=== PATIENT | male | born 1980 | race Caucasian/White ===

== ENCOUNTER 2018-12-07 14:35 | Emergency (ER) | payer MEDICAID, SELFPAY ==
--- NOTE | 2018-12-07 14:44 | NUR.NOTE ---
Nursing Note: pt states that on Wednesday morning he awoke with 4/10 pain in left tactical pt states that when standing or walking it radiates LLQ abdomen. pt does have history of vasectomy and is concerned that it may have something to do with that
[2018-12-07 14:47] VITALS: BP 128/72; PULSE 56; RESP 15; TEMP 37.2; O2SAT 96
--- NOTE | 2018-12-07 15:11 | DI.US_ITS ---
SYMPTOM/DIAGNOSIS: LT TESTICULAR PAIN TESTICULAR ULTRASOUND: Routine examination was performed. The right testicle measures 5.2 by 3.6 by 3.6 cm. There is normal blood flow to the right testicle. No intratesticular mass is seen. No evidence of torsion. The right epididymis is grossly unremarkable except for a 3 mm. cyst in the epididymal head. The left testicle measures 4.2 by 3.2 by 3.6 cm. It is homogeneous in echogenicity with normal blood flow. No evidence of an intratesticular mass or torsion is present. The left epididymis is unremarkable. Note is made of moderate bilateral hydroceles. Note is made of a small left varicocele. IMPRESSION: 1. No evidence of an intratesticular mass or torsion. 2. Moderate bilateral hydroceles.
--- NOTE | 2018-12-07 16:10 | DI.VRAD_ITS ---
EXAM: US Scrotum EXAM DATE/TIME: 12/07/2018 3:43 PM CLINICAL HISTORY: 38 years old, male; Patient HX: Lt testicular pain since Tuesday 12/05 TECHNIQUE: Imaging protocol: Real-time ultrasound of the scrotum and contents with color Doppler and image documentation. COMPARISON: No relevant prior studies available. FINDINGS: Right Testicle: . No mass. No torsion. Normal vascular flow. There is a moderate size right hydrocele Left Testicle: . No mass. No torsion. Normal vascular flow. There is a moderate-sized left hydrocele slightly larger than the right. Epididymides: The left epididymis shows no abnormality.. There is a 3 mm cyst in the head of the right epididymis. There is normal blood flow to the right epididymis. Scrotum: There is a small dilated vein in the left measuring up to 5 mm in diameter.. IMPRESSION: 1. Moderate size bilateral hydroceles 2. Small left varicocele 3. Tiny cyst in the head of the right epididymis. Dictated and Authenticated by: Juan Delgadillo MD. Ordering:GRETCHEN Hagen MD
--- NOTE | 2018-12-07 16:11 | ED.GENADUL_ITS ---
Discharge Plan Disposition Patient Disposition: HOME Condition: Stable Discharge Details Chief Complaint: GenMedical Clinical Impression: Left varicocele Primary Care Provider: Breana,Local ED Provider: Hieu Saucedo Home Meds and New Rx's Prescriptions: Continued Cholestyramine Light 4 gram Powder 4 g PO BID RF: 0 Discharge Instructions Instructions: Varicocele (ED), Testicle Pain (ED) Additional Instructions: You should wear tight fitting underwear or briefs to provide additional support and use [id number] acetaminophen or Motrin for pain. Return to the emerge ncy department for any new or significant worsening of symptoms, swelling to your testicle, any urinary symptoms that you begin having. Otherwise follow-up with primary care provider for reassessment as needed Referrals: Primary Care Provider [Outside] (As needed for reassessment) Discharge Data Discharge Date/Time-TO BE ENTERED AT DEPARTURE: 12/07/18 16:32 Medical Decision Making Left testicle pain x3 days, patient woke up on Wednesday morning with continued pain. Patient does state history of left inguinal hernia and vasectomy. Patient denies any urinary symptoms, discharge, rash or lesions. Physical exam shows a slightly higher left testicle than right, inability to produce cremaster reflex bilateral, no tenderness of right testicle but diffuse tenderness of left testicle without any specific findings. No inguinal canal tenderness mass or swelling. Plan to do ultrasound imaging for exclusion of torsion. Preliminary report from operations and maintenance technician shows no evidence of torsion but left varicocele that may be causing symptoms. Patient is otherwise stable and denies any need for pain medications I feel that he is able to safely follow-up with urology if symptoms do not improve with tight fitting underwear. Return precautions were discussed HPI General Mode of arrival: ambulatory . Date/Time Provider Initiated Documentation: 12/07/18 14:59 . Limitations to Documentation: no limitations . Information obtained by: patient and RN notes reviewed . History of Present Illness 38 year old M presents to the emergency department with the chief complaint of Left testicle pain, described as moderate, with intensity rated at 4. Quality is described as aching, and is localized to the genitals. Patient started experiencing this day(s) (3) and it has been constant. No relieving factors improve symptom(s), No exacerbating factors reported . Patient notes no other symptoms.. Patient did receive the following treatments prior to arrival, none Related Data Home Medications Medication Instructions Recorded Confirmed Cholestyramine Light 4 g PO BID 12/07/18 12/07/18 Allergies Allergy/AdvReac Type Severity Reaction Status Date / Time No Known Allergies Allergy Unverified 12/07/18 14:48 General Stated Complaint: GenMedical JOSE ENRIQUE: 2 Review of Systems Constitutional Denies chills and Denies fever(s) Gastrointestinal Denies abdominal pain, Denies nausea and Denies vomiting Genitourinary Reports as per HPI, Denies hematuria, Denies difficulty urinating, Denies dysuria, Denies penile discharge, Denies scrotal swelling, Denies testicular mass and Reports testicular pain Integumentary/Breasts Denies erythema and Denies rash REPLACED BY [facility] Social History Smoking/Tobacco Use Status: Never Alcohol Intake: current Alcohol Intake frequency: a few times a week Drug use: Never Substance use type: does not use Do you feel safe at home: Yes Do you feel safe in your relationship?: Yes Exam Const General: cooperative, no acute distress and not ill appearing Orientation: alert, awake and oriented x3 Resp Effort & Inspection: normal respiratory effort, able to speak in complete sentences and no respiratory distress GI Inspection: no visible herniation Palpation: no hernias Penis: normal penis Meatus: meatus normal Scrotum: cremasteric reflex absent bilaterally, not edematous, not erythematous, no masses and no scrotal swelling Testes: not enlarged, no epididymal induration, no epidiymal masses, no testicular mass, no testicular swelling, testicular tenderness on the left and high-riding testicle on the left Skin General skin exam: no rashes or lesions noted Course Vital Signs Temperature 37.2 C 12/07/18 14:47 Pulse 56 L 12/07/18 14:47 Respiratory Rate 15 12/07/18 14:47 Blood Pressure 128/72 12/07/18 14:47 Pulse Oximetry 96 12/07/18 14:47 Temperature 37.2 C 12/07/18 14:47 Temperature Source Skin 12/07/18 14:47 Pulse 56 L 12/07/18 14:47 Respiratory Rate 15 12/07/18 14:47 Respiratory Effort 12/07/18 14:49 Blood Pressure 128/72 12/07/18 14:47 Blood Pressure Position Sitting 12/07/18 14:47 Pulse Oximetry 96 12/07/18 14:47 Oxygen Delivery Method Room Air 12/07/18 14:47 Oxygen Flow Rate 0 12/07/18 14:47 Pain Level 3 12/07/18 14:47
== END 2018-12-07 16:32 | disposition home or self-care (01) ==
LOC: ER 16:13
PROVIDERS: Emergency Provider Nurse Practitioner Family
DX: I86.1 Scrotal varices (principal)
CPT/HCPCS: 99285; 76870; 99284

== ENCOUNTER 2023-04-02 19:08 | Observation (INO) | payer OTHER, SELFPAY ==
[2023-04-02 19:18] VITALS: BP 148/103; PULSE 93; RESP 18; TEMP 37.1; O2SAT 98
--- NOTE | 2023-04-02 20:12 | W.ED.GENAD ---
Discharge Plan Disposition Patient Disposition: Admit to [facility] Condition: Fair Discharge Details Clinical Impression: Sigmoid diverticulitis Primary Care Provider: Breana,Local ED Provider: Eduardo Villagomez Meds and New Rx's Prescriptions: No Action Cholestyramine Light 4 gram Powder 4 g PO BID Medical Decision Making Patient presenting to ED with right lower quadrant abdominal pain worsening over the course of today. He has difficulty ambulating and is hunched over walking to the room. He is exquisitely tender in the right lower quadrant with guarding and rebound. Likely appendicitis. IV established and fluids started. Patient made NPO. Morphine and ondansetron given. Laboratory studies and CT scan ordered. Patient's laboratory studies with a white count of 11.5. Hemoglobin, platelets, chemistries, lipase, liver function all normal. Urine still pending at this point. CT scan does not show appendicitis. He does have sigmoid colitis with no evidence of perforation or abscess. He has required multiple doses of morphine. He still has significant pain and tenderness. We will plan admission for pain control, hydration, antibiotics. Discussed with patient. Discussed with hospitalist. First dose antibiotics given here in the ED. Lab Data Lab results reviewed: Yes I reviewed the patient's lab results. HPI General Mode of arrival: ambulatory. Date/Time Provider Initiated Documentation: 04/02/23 20:12. Limitations to Documentation: no limitations. Information obtained by: patient. HPI Narrative: Patient presents to the ED with worsening abdominal pain that initially started yesterday. He was able to get up and go to work this morning but his pain continued to get worse such that he left shortly after lunchtime. He is having difficulty ambulating because of pain. Pain is worse with movement. It is right lower quadrant in nature. He has associated nausea and chills but has not had fever, vomiting. He has had soft stool but not diarrhea. He denies urinary symptoms. He has no appetite at this point. Related Data Home Medications Medication Instructions Recorded Confirmed cholestyramine-aspartame 4 gram 4 g PO BID 12/07/18 12/07/18 oral powder (Cholestyramine Light) Allergies Allergy/AdvReac Type Severity Reaction Status Date / Time No Known Allergies Allergy Unverified 12/07/18 14:48 General Stated Complaint: Abd Prob JOSE ENRIQUE: 3 Review of Systems Narrative: Per HPI PFSH All Active Problems (Updated 09/29/23 @ 22:11 by Eduardo Villagomez MD) Sigmoid diverticulitis (Acute) Medical History GERD (gastroesophageal reflux disease) Hypercholesterolemia Social History Smoking/Tobacco Use Status: Current every day Smoking risk assessment performed?: Yes Alcohol Intake: current Alcohol Intake frequency: a few times a week Drug use: Never Substance use type: does not use Do you feel safe at home: Yes Do you feel safe in your relationship?: Yes Exam Narrative Exam Narrative: Const: WDWN male in NAD. HEENT: NC/AT. Normal facial exam. Eyes: Normal conjunctiva and sclera. Neck: Supple. Trachea midline. Lungs: Normal respiratory effort. GI: Soft and ND. Tender in the RLQ with guarding, rebound. Equivocal [place]. Neuro: A+O x 3. Normal speech, mentation, gait. Cranial nerves II - XII grossly intact. No gross motor or sensory deficit. Ext: No C/C/E. Skin: Warm and dry without rash. Course Vital Signs Vital signs: Vital Signs Temperature 98.8 F 04/02/23 19:18 Pulse 93 H 04/02/23 19:18 Respiratory Rate 18 04/02/23 19:18 Blood Pressure 148/103 H 04/02/23 19:18 Pulse Oximetry 98 04/02/23 19:18 Temperature 98.8 F 04/02/23 19:18 Temperature Source Skin 04/02/23 19:18 Pulse 93 H 04/02/23 19:18 Respiratory Rate 18 04/02/23 19:18 Respiratory Effort Normal 04/02/23 19:20 Blood Pressure 148/103 H 04/02/23 19:18 Blood Pressure Position Sitting 04/02/23 19:18 Pulse Oximetry 98 04/02/23 19:18 Oxygen Delivery Method Room Air 04/02/23 19:18 Oxygen Flow Rate 0 04/02/23 19:18 Pain Level 10 04/02/23 19:18
--- NOTE | 2023-04-02 20:15 | DI.CT_ITS ---
Exam(s) CT ABDOMEN PELVIS W EXAM: CT ABDOMEN PELVIS W CLINICAL HISTORY: RLQ pain/tenderness. TECHNIQUE: Imaging Protocol: Axial computed tomography images with coronal and sagittal reformatted images were created and reviewed CONTRAST MATERIAL: Intravenous: Omnipaque-350 100cc Oral: None COMPARISON: No exams were available for comparison FINDINGS: VISUALIZED LUNG BASES: No nodules nor pleural effusions evident. ABDOMEN: There is no ascites. LIVER: Liver is hypodense implying steatosis. No discrete focal hepatic lesions. No dilated intrahe patic ducts. GALLBLADDER/BILIARY: No obvious gallbladder pathology. CBD is not dilated. PANCREAS: No evidence of pancreatic mass nor dilatation of the pancreatic duct. SPLEEN: Spleen is not enlarged. No obvious intrasplenic lesions. Splenic and portal veins are paten t. ADRENALS: There are no significant adrenal masses. KIDNEYS:No cysts evident. No solid renal masses. No calculi nor hydronephrosis.. ABDOMINAL AORTA: Abdominal aorta is not enlarged. LYMPH NODES:There is no retroperitoneal nor paraaortic adenopathy. ABDOMINAL WALL: No evidence of significant anterior abdominal wall nor inguinal hernia. GI: There is no evidence of bowel obstruction.. PELVIS: GI: Appendix diameter is upper normal.Main findings are in the sigmoid where there is evidence of acu te diverticulitis. The culprit diverticulum is on the right side of the sigmoid wall in the mid pelv is. There is abundant streaking but no abscess at this time. LYMPH NODES: There is no intrapelvic nor inguinal adenopathy. REPRODUCTIVE: Prostate size normal. Seminal vesicles unremarkable. URINARY BLADDER: No calculi nor obvious masses evident. No intraluminal gas to suggest fistulous com munication from the adjacent diverticulitis of the sigmoid. OSSEOUS: No fractures and no significant osseous lesions. IMPRESSION: 1. Findings are consistent with acute sigmoid diverticulitis. There is significant surrounding fat s tranding but no formed abscess at this time. No fluid in the dependent aspect of the pelvis. 2. There is no gas in the lumen of the adjacent urinary bladder to suggest fistulous communication. 3. There is no gas in the portal venous system and there is no abscess in the liver. RADIATION DOSE DELIVERED: 1,345.85mGy.cm Total DLP DATA REPOSITORY: All CT scans at this facility are submitted to the National Radiology Data Registry (NRDR) Dose Index Registry (DIR) with the [employer] (ACR). RADIATION OPTIMIZATION: All CT scans at this facility use at least one of these dose optimization te chniques: automated exposure control; mA and/or kV adjustment per patient size (includes targeted exa ms where dose is matched to clinical indication); or iterative reconstruction.
[2023-04-02] MEDS: Ondansetron 4 MG/2 ML VIAL IVP (20:40)
[2023-04-02] MEDS: Lactated Ringers 1,000 ML 1000 ML IV (20:41)
[2023-04-02] MEDS: MORPHine 10 MG/ML VIAL 4 MG IVP ×2 (20:41→23:20)
[2023-04-02] MEDS: Normal Saline - Diluent 50 ML VIAL IJ (20:50)
[2023-04-02 20:51] LABS: Abs Immature Grans 0.07 10^3/uL (0.0-0.06); Absolute Basophil Count 0.03 10^3/uL (0.0-0.2); Absolute Eosinophil Count 0.06 10^3/uL (0.0-0.7); Absolute Lymphocyte Count 1.65 10^3/uL (1.2-3.4); Absolute Monocyte Count 0.73 10^3/uL (0.1-0.8); Basophils % 0.3; Eosinophils % 0.5; HCT 44.3 % (40.0-50.0); HGB 15.2 g/dL (13.5-17.5); Immature Grans % 0.6; Lymphocytes % 14.3; MCH 32.2 pg (27.0-33.0); MCHC 34.3 % (32.0-36.0); MCV 94 fL (80-95); Monocytes % 6.3; Platelet Count 227 10^3/uL (130-400); RBC 4.72 10^6/uL (4.36-5.78); RDW 12.5 % (11.8-14.1); RDW-SD 43.7 fL; WBC 11.51 10^3/uL (4.4-10.8)
[2023-04-02] MEDS: Omnipaque 350 MG/ML 100 ML BTL IJ (20:51)
[2023-04-02 20:52] LABS: Absolute Neutrophil Count 8.98 10^3/uL (1.2-6.7)
[2023-04-02 21:13] LABS: ALT 62 U/L (16-63); AST 21 U/L (15-37); Albumin 3.7 g/dL (3.4-5.0); Alkaline Phosphatase 59 U/L (46-116); Anion Gap 9.1 mmol/L (3-11); BUN 14 mg/dL (7-18); Bilirubin, Total 0.6 mg/dL (0.2-1.0); CO2 26.9 mmol/L (21.0-32.0); CREATININE 0.9 mg/dL (0.70-1.30); Calcium 9.4 mg/dL (8.5-10.1); Chloride 100 mmol/L (98-107); Estimated GFR 108.01 (mL/min/1.73m2); Glucose 105 mg/dL (74-106); Lipase 20 U/L (16-77); Potassium 3.6 mmol/L (3.5-5.1); Sodium 136 mmol/L (136-145); Total Protein 7.2 g/dL (6.4-8.2)
[2023-04-02] MEDS: MORPHine 10 MG/ML VIAL 6 MG IVP (21:25)
--- NOTE | 2023-04-02 21:41 | DI.VRAD_ITS ---
PROCEDURE INFORMATION: Exam: CT Abdomen And Pelvis With Contrast Exam date and time: 04/02/2023 8:59 PM Age: 42 years old Clinical indication: Abdominal tenderness and other: Rlq pain; Prior surgery; Surgery date: 6+ months; Surgery type: Left sided hernia repair; Patient HX: Rlq pain/tenderness TECHNIQUE: Imaging protocol: Computed tomography of the abdomen and pelvis with contrast. Contrast material: OMNIPAQUE 350; Contrast volume: 100 ml; Contrast route: INTRAVENOUS (IV); COMPARISON: US scrotum 12/07/2018 3:21 PM FINDINGS: Liver: Normal. No mass. Gallbladder and bile ducts: Normal. No calcified stones. No ductal dilation. Pancreas: Normal. No ductal dilation. Spleen: Normal. No splenomegaly. Adrenal glands: Normal. No mass. Kidneys and ureters: Normal. No hydronephrosis. Stomach and bowel: Focal area of wall thickening inflammatory change at the site of the diverticulum in the sigmoid colon. Findings are consistent with acute diverticulitis. Appendix: No evidence of appendicitis. Intraperitoneal space: Unremarkable. No free air. No significant fluid collection. Vasculature: Unremarkable. No abdominal aortic aneurysm. Lymph nodes: Unremarkable. No enlarged lymph nodes. Urinary bladder: Unremarkable as visualized. Reproductive: Unremarkable as visualized. Bones/joints: Unremarkable. No acute fracture. Soft tissues: Unremarkable. IMPRESSION: Sigmoid colon diverticulitis. No organized fluid collection to suggest abscess at this time. Dictated and Authenticated by: Justa Briseno MD. Ordering:NERIS Clark MD
[2023-04-02 22:17] LABS: Bilirubin Negative (Negative); Blood Negative (Negative); Clarity Clear (Clear); Glucose Negative (Negative); Ketones Negative (Negative); Leukocyte Esterase Negative (Negative); Nitrite Negative (Negative); Specific Gravity 1.015 (1.005-1.025); Urobilinogen 0.2 mg/dL (Up to 0.2); pH 7.5 (5-8)
[2023-04-02] MEDS: metroNIDAZOLE 500 MG/100 ML BAG 100 MG IVPB (22:40)
[2023-04-02] MEDS: cefTRIAXone 1 GM/50 ML BAG IVPB (22:40)
[2023-04-02 23:04] VITALS: BP 97/58; PULSE 62; RESP 17; TEMP 36.7; O2SAT 96
[2023-04-03 00:03] VITALS: BP 115/71; PULSE 72; RESP 16; TEMP 36; O2SAT 96
[2023-04-03 00:06] VITALS: BP 115/71; PULSE 72; RESP 16; TEMP 36; O2SAT 96
--- NOTE | 2023-04-03 01:27 | HPE_ITS ---
Date of service: 04/03/23 Time of Service: 01:28 Assessment and Plan Assessment and plan (1) Sigmoid diverticulitis: Status: Acute Assessment and plan: CT and symptoms are c/w this diagnosis, no signs of appendicitis on CT. No signs of complications such as abscess. I will continue the ceftriaxone and metronidazole NPO wiht IV fluids and pain medications for now. Morphine didn't help, change to hydromorphone. (2) History of IBS: Status: Acute Assessment and plan: Interesting he has had extensive of abdominal pain and is treated with cholestyramine as an outpatient. He has had normal EGD/colonoscopy in the past. (3) Smoker: Status: Acute Assessment and plan: Offere NRT but he declined. (4) DVT prophylaxis: Status: Acute Assessment and plan: With infection and less mobile status, use LMWH (5) Discharge planning issues: Status: Acute Assessment and plan: STable on medical floor. Home when pain managable and taking oral fluids. History of Present Illness History of Present Illness Chief Complaint: abdominal pain Narrative: 42 yo M cigarette smoker with history of episodic abdominal pain without a clear diagnosis presenting with 3 days of progressive lower abdomen to right lower quadrant pain. Started mildly. Pain is dull and constant, but waves of more sharp pain come and last about a minute. No pain to groin, but he does get some sharp shooting into his anal area. Pain made worse by eating. He has had 1-2 small painful BMs per day, not bloody. This does not releive his pain. He has not had his appetite. He has had some chills but no fevers. No respiratory or urinary symptoms. He has a long history of intermittend abdominal pain and has had multiple CTs and colononscopies that were not revealing in the past. His pain is more severe and acute this time. Review of Systems Constitutional Constitutional: Denies fever(s), Reports lethargy and Denies weakness Eyes Eyes: Denies change in vision and Denies irritation ENT Ears, Nose, Mouth, and Throat: Denies dizziness, Denies nasal congestion, Denies nasal discharge and Denies sore throat Cardiovascular Cardiovascular: Reports as per HPI, Denies chest pain, Denies chest pain with activity, Denies palpitations and Denies orthopnea Respiratory Respiratory: Denies cough, Denies excessive phlegm production and Denies wheezing Gastrointestinal Gastrointestinal: Denies abdominal pain, Denies heartburn and Denies vomiting Genitourinary Genitourinary: Denies hematuria, Denies dysuria and Denies urinary incontinence Integumentary/Breasts Skin/Breast: Denies rash and Denies skin ulcer Neurologic Neurologic: Denies dizziness, Denies sensory deficit and Denies weakness Psychiatric Psychiatric: Denies mood swings and Denies panic attacks Endocrine Endocrine: Denies palpitations Hematologic/Lymphatic Hematologic/Lymphatic: Denies easy bleeding Allergic/Immunologic Allergic/Immunologic: Denies wheezing PFSH All Active Problems (Updated 04/03/23 @ 01:39 by Link Gtz) Discharge planning issues (Acute) DVT prophylaxis (Acute) Smoker (Acute) History of IBS (Acute) Sigmoid diverticulitis (Acute) Medical History GERD (gastroesophageal reflux disease) Hypercholesterolemia Social History Smoking/Tobacco Use Status: Current every day Smoking risk assessment performed?: Yes Alcohol Intake: current Alcohol Intake frequency: a few times a week Drug use: Never Substance use type: does not use Housing: house Do you feel safe at home: Yes Do you feel safe in your relationship?: Yes Meds Allergies and Home Medications Allergies Allergy/AdvReac Type Severity Reaction Status Date / Time No Known Allergies Allergy Unverified 12/07/18 14:48 Home Medications Medication Instructions Recorded Confirmed Type cholestyramine-aspartame 4 gram 4 g PO BID 12/07/18 04/02/23 History oral powder (Cholestyramine Light) omeprazole 40 mg capsule,delayed 40 mg PO DAILY 04/02/23 04/02/23 History release Exam Narrative Exam Narrative: GEN: Alert and oriented, pleasant and cooperative, gives linear history. No acute distress at rest, but uncomfortable in waves every few minutes HEENT: Head atraumatic. Conjunctiva clear, no icterus. PEERL, EOMI. no rhinorrhea. MMM, OP benign. Neck is supple with no masses or lymphadenopathy CV: RRR with no murmurs, gallops, or rubs. ABD: hypoactice bowel sounds. Soft, not distended. + tender RLQ to mid abdomen, no guarding but there is some rebound to mid abdomen EXT: no cyanosis, clubbing, or edema MSK: No joint redness or swelling NEURO: CN 2-12 grossly intact. Normal movement of 4 extremities. Normal speech and coordination SKIN: No rashes or open wounds. PSYCH: normal mood and affect Results Imaging CT scan - pelvis: report reviewed (Sigmoid colon diverticulitis. No organized fluid collection to suggest abscess at this time.) Labs 04/02/23 20:21 04/02/23 20:21 Labs: Laboratory Results - last 24 hr 04/02/23 04/02/23 04/02/23 20:21 20:21 22:05 WBC 11.51 H RBC 4.72 Hgb 15.2 Hct 44.3 MCV 94 MCH 32.2 MCHC 34.3 RDW 12.5 Plt Count 227 MPV 10.0 Immature Gran % 0.6 Neutrophils % 78.0 Lymphocytes % 14.3 Monocytes % 6.3 Eosinophils % 0.5 Basophils % 0.3 Nucleated RBC % 0.0 Absolute Neutrophils 8.98 H Absolute Lymphocytes 1.65 Absolute Monocytes 0.73 Absolute Eosinophils 0.06 Absolute Basophils 0.03 Sodium 136 Potassium 3.6 Chloride 100 Carbon Dioxide 26.9 Anion Gap 9.1 BUN 14 Creatinine 0.9 Est GFR (CKD-EPI 2020) 108.01 Glucose 105 Calcium 9.4 Total Bilirubin 0.6 AST 21 ALT 62 Alkaline Phosphatase 59 Total Protein 7.2 Albumin 3.7 Lipase 20 Urine Color Yellow Urine Clarity Clear Urine pH 7.5 Ur Specific [place] 1.015 Urine Protein Negative Urine Ketones Negative Urine Blood Negative Urine Nitrite Negative Urine Bilirubin Negative Urine Urobilinogen 0.2 Ur Leukocyte Esterase Negative Urine Glucose Negative Last Vital Signs Temp 36 C L 04/03/23 00:06 Pulse 72 04/03/23 00:06 Resp 16 04/03/23 00:06 BP 115/71 04/03/23 00:06 Pulse Ox 96 04/03/23 00:06 Time Spent Time spent with Patient: 55-74 minutes Time was spent: preparing to see the patient(eg.review tests), obtaining and/or reviewing separately otained hiistory, ordering medications,tests, procedures, referring, communicating with other health director of managed care, indepentently interpreting results and counseling the patient
[2023-04-03] MEDS: POTASSIUM CHLORIDE/D5-0.45NACL 1,000 ML 125 MEQ IV ×3 (02:33→20:23)
[2023-04-03 06:07] LABS: Abs Immature Grans 0.06 10^3/uL (0.0-0.06); Absolute Basophil Count 0.05 10^3/uL (0.0-0.2); Absolute Eosinophil Count 0.08 10^3/uL (0.0-0.7); Absolute Lymphocyte Count 1.43 10^3/uL (1.2-3.4); Absolute Monocyte Count 0.83 10^3/uL (0.1-0.8); Basophils % 0.4; Eosinophils % 0.7; HCT 40.9 % (40.0-50.0); HGB 13.8 g/dL (13.5-17.5); Immature Grans % 0.5; Lymphocytes % 12.7; MCH 32.3 pg (27.0-33.0); MCHC 33.7 % (32.0-36.0); MCV 96 fL (80-95); MPV 9.9 fL (8.0-11.0); Monocytes % 7.4; Neutrophils % 78.3; Platelet Count 201 10^3/uL (130-400); RBC 4.27 10^6/uL (4.36-5.78); RDW 12.8 % (11.8-14.1); RDW-SD 45.2 fL; WBC 11.25 10^3/uL (4.4-10.8)
[2023-04-03 06:15] LABS: Absolute Neutrophil Count 8.81 10^3/uL (1.2-6.7)
[2023-04-03] MEDS: Omeprazole 20 MG CAPCR 40 MG PO (07:08)
[2023-04-03] MEDS: HYDROmorphone 2 MG/ML SYR 1 MG IVP ×4 (07:16→20:21)
[2023-04-03] MEDS: Normal Saline Flush 10 ML SYR IVP ×2 (07:17→11:36)
[2023-04-03 07:26] VITALS: BP 111/71; PULSE 52; RESP 16; TEMP 35.7; O2SAT 93
[2023-04-03] MEDS: Enoxaparin 40 MG/0.4 ML SYR SC (08:43)
[2023-04-03] MEDS: metroNIDAZOLE 500 MG/100 ML BAG 100 MG IVPB ×2 (08:44→16:08)
--- NOTE | 2023-04-03 12:16 | INITIAL_ITS ---
Date of service: 04/03/23 Time of Service: 12:16 Care Management Initial Assmt Initial Assessment REASON FOR HOSPITALIZATION:: Sigmoid Diverticulitis PREVIOUS FUNCTIONAL STATUS/SOCIAL/FAMILY SUPPORTS:: Juan lives in [place] with his and kids. 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 Juan drives and is active and independent at baseline. CURRENT FUNCTIONAL STATUS:: Juan was lying in bed when CM met with him. He is awake and engages in conversation. He shares that he has a hard time sitting still and jokes that he should be home working on his roof. ADVANCE DIRECTIVES:: None, CM will discuss forms Has patient been provided with info about the portal/API?: Yes Did the patient sign up for the portal?: No CODE STATUS:: Full Code INSURANCE COVERAGE / FINANCIAL ISSUES:: [employer] CURRENT HOME/COMMUNITY SERVICES/EQUIPMENT:: None PRIMARY CARE PHYSICIAN:: Dr. Mitchell, [facility] POTENTIAL DISCHARGE NEEDS:: Follow up appointments, discharge plan of care PATIENT/FAMILY EDUCATION NEEDS:: Review discharge instructions, limitations, medications and plan to follow up with community providers. Discuss ask me three and goals of self care. TRANSPORTATION:: Via private vehicle with PLAN:: Anticipate Juan will discharge home via private vehicle with family when medically ready. He will follow up with community providers and his discharge plan of care as instructed. No new services are indicated at this time. CM will follow. PFSH All Active Problems (Updated 04/03/23 @ 01:39 by Link Gtz) Discharge planning issues (Acute) DVT prophylaxis (Acute) Smoker (Acute) History of IBS (Acute) Sigmoid diverticulitis (Acute) Medical History GERD (gastroesophageal reflux disease) Hypercholesterolemia Social History Smoking/Tobacco Use Status: Current every day Smoking risk assessment performed?: Yes Alcohol Intake: current Alcohol Intake frequency: a few times a week Drug use: Never Substance use type: does not use Housing: house Do you feel safe at home: Yes Do you feel safe in your relationship?: Yes
[2023-04-03 20:49] VITALS: BP 123/74; PULSE 61; RESP 20; TEMP 37.4; O2SAT 96
[2023-04-03] MEDS: cefTRIAXone 2 GM/50 ML BAG IVPB (21:47)
[2023-04-04] MEDS: HYDROmorphone 2 MG/ML SYR 1 MG IVP ×2 (00:31→09:17)
[2023-04-04] MEDS: metroNIDAZOLE 500 MG/100 ML BAG 100 MG IVPB ×2 (00:31→09:05)
[2023-04-04] MEDS: Ketorolac 30 MG/ML VIAL IVP (01:38)
[2023-04-04] MEDS: POTASSIUM CHLORIDE/D5-0.45NACL 1,000 ML 125 MEQ IV (06:15)
[2023-04-04 07:27] VITALS: BP 119/76; PULSE 53; RESP 16; TEMP 36.5; O2SAT 94
[2023-04-04 07:48] LABS: Abs Immature Grans 0.04 10^3/uL (0.0-0.06); Absolute Basophil Count 0.02 10^3/uL (0.0-0.2); Absolute Eosinophil Count 0.09 10^3/uL (0.0-0.7); Absolute Lymphocyte Count 1.05 10^3/uL (1.2-3.4); Absolute Monocyte Count 0.86 10^3/uL (0.1-0.8); Absolute Neutrophil Count 8.15 10^3/uL (1.2-6.7); Basophils % 0.2; Eosinophils % 0.9; HCT 40.5 % (40.0-50.0); HGB 13.5 g/dL (13.5-17.5); Immature Grans % 0.4; Lymphocytes % 10.3; MCH 31.7 pg (27.0-33.0); MCHC 33.3 % (32.0-36.0); MCV 95 fL (80-95); MPV 9.9 fL (8.0-11.0); Monocytes % 8.4; Neutrophils % 79.8; Platelet Count 201 10^3/uL (130-400); RBC 4.26 10^6/uL (4.36-5.78); RDW 12.4 % (11.8-14.1); RDW-SD 43.4 fL; WBC 10.21 10^3/uL (4.4-10.8)
[2023-04-04 08:02] LABS: Magnesium 2.2 mg/dL (1.8-2.4)
[2023-04-04 08:04] LABS: Anion Gap 7.6 mmol/L (3-11); BUN 8 mg/dL (7-18); CO2 26.4 mmol/L (21.0-32.0); CREATININE 0.9 mg/dL (0.70-1.30); Calcium 8.7 mg/dL (8.5-10.1); Chloride 103 mmol/L (98-107); Estimated GFR 108.01 (mL/min/1.73m2); Glucose 135 mg/dL (74-106); Potassium 3.7 mmol/L (3.5-5.1); Sodium 137 mmol/L (136-145)
[2023-04-04] MEDS: Omeprazole 20 MG CAPCR 40 MG PO (09:04)
[2023-04-04] MEDS: Enoxaparin 40 MG/0.4 ML SYR SC (09:04)
[2023-04-04] MEDS: Normal Saline Flush 10 ML SYR IVP (09:18)
--- NOTE | 2023-04-04 11:01 | DSE_ITS ---
Date of service: 04/04/23 Time of Service: 11:01 DS: Diagnosis Discharge Diagnosis (1) Sigmoid diverticulitis: Status: Acute Asessment and Plan: -initially presented with abdominal pain, diverticulitis as seen on CT abdo/pelvis -treated with IV ceftri and flagyl -now tolerating full liquid diet -being discharged with PO cipro and flagyl for total 10 day course of antibiotics (2) History of IBS: Status: Acute (3) Smoker: Status: Acute Discharge Plan Disposition Patient Disposition: Home Condition: Stable Discharge Details Reason For Visit: sigmoid diverticulitis Admit Date/Time: 04/02/23 22:31 Admit Provider: Link Gtz Attending Provider: Link Gtz Primary Care Provider: Bre[place],[facility] Course Hospital Course: Patient initially presented with RLQ pain that was found to be acute colonic diverticulitis. His pain improved with IV morphine and he was able to advance his diet to full liquids without recurrence of his pain. Therefore it was deter mined that he was table for discharge home with a course of PO cipro and flagyl for a 10 day total course of antibiotic therapy. Home Meds and New Rx's Prescriptions: New ciprofloxacin HCl [Cipro] 500 mg tablet 500 mg PO BID Qty: 18 0RF metronidazole 500 mg tablet 500 mg PO Q8H Qty: 27 0RF hydromorphone [Dilaudid] 2 mg tablet 2 mg PO Q8H PRN PRN (Reason: pain) Qty: 4 0RF Continued omeprazole 40 mg Capsule,Delayed Release(Dr/Ec) 40 mg PO DAILY Cholestyramine Light 4 gram Powder 4 g PO BID Discharge Instructions Instructions: Diverticulitis (DC) Stand Alone Forms: Nursing Discharge Form Referrals: Jose Castaneda MD [ [facility]YSICIAN] - (I called office and left a message for them to reach out to you to set up a new pcp and follow up appointment if you do not hear from this office please give them a call on Wednesday04/06/2023.) Activity:: Activity as Tolerated Equipment/Supplies:: No Equipment Needed Diet:: As Tolerated Discharge Orders Discharge Orders: Discharge Order (Routine); Ordered 04/04/23 Ordered By: Skyler Rahman DS: Summary Time Spent with Patient providing and/or coordinating discharge services: Greater than 30 minutes Status at Discharge Functional status at discharge: independent ambulation Overall status at discharge: patient is back to baseline Mental Status: mental status grossly normal Speech and Movement: speech and movement normal Mood: congruent mood Affect: normal affect Exam Narrative Exam Narrative: Well appearing gentleman laying in bed in no acute distress, AOx4, heart RRR, lungs CTAB, abdomen soft, non-tender and non-distended Psych Mental Status: mental status grossly normal Speech and Movement: speech and movement normal Mood: congruent mood Affect: normal affect DS: Data Vitals/I&O Vitals and I&O: Vital Signs Temperature 97.7 F 04/04/23 07:27 Temperature Source Tympanic 04/04/23 07:27 Pulse 53 L 04/04/23 07:27 Pulse Rhythm Regular 04/04/23 02:13 Respiratory Rate 16 04/04/23 07:27 Respiratory Effort Normal, Non-Labored 04/04/23 02:13 Respiratory Depth Normal 04/04/23 02:13 Respiratory Pattern Normal 04/04/23 02:13 Blood Pressure 119/76 04/04/23 07:27 Blood Pressure Position Sitting 04/02/23 19:18 Pulse Oximetry 94 04/04/23 07:27 Oxygen Delivery Method Room Air 04/04/23 07:27 Oxygen Flow Rate 0 04/04/23 07:27 Pain Level 7 04/04/23 09:17 Intake & Output 04/03/23 04/04/23 04/04/23 17:59 05:59 17:59 Intake Total 1158.750 / 6103.430 4633 / 3308.750 1056.250 / 1056.250 Output Total 300 / 300 850 / 1150 750 / 750 Balance 858.750 / 249.017 6521 / 2158.750 306.250 / 306.250 Intake: IV 1158.750 / 0271.605 4952 / 3308.750 506.250 / 506.250 Oral 550 / 550 Output: Urine 300 / 300 850 / 1150 750 / 750 Other: Urine Color Light Cori Yellow Light Cori Urine Appearance Clear Clear Clear Urine Odor Normal None Normal Comment Void x1 in the urinal. Urinal noted on pt.'s bedside table; unsure when pt. voided this specimen. Void x1 in the urinal. Voiding Methods Urinal Urinal Urinal Data Completed and Pending Labs on day of discharge: Labs from last 24 hours 04/04/23 04/04/23 04/04/23 07:16 07:16 07:16 WBC 10.21 RBC 4.26 L Hgb 13.5 Hct 40.5 MCV 95 MCH 31.7 MCHC 33.3 RDW 12.4 Plt Count 201 MPV 9.9 Immature Gran % 0.4 Neutrophils % 79.8 Lymphocytes % 10.3 Monocytes % 8.4 Eosinophils % 0.9 Basophils % 0.2 Nucleated RBC % 0.0 Absolute Neutrophils 8.15 H Absolute Lymphocytes 1.05 L Absolute Monocytes 0.86 H Absolute Eosinophils 0.09 Absolute Basophils 0.02 Sodium 137 Potassium 3.7 Chloride 103 Carbon Dioxide 26.4 Anion Gap 7.6 BUN 8 Creatinine 0.9 Est GFR (CKD-EPI 2020) 108.01 Glucose 135 H Calcium 8.7 Magnesium 2.2 PFSH All Active Problems Discharge planning issues (Acute) DVT prophylaxis (Acute) Smoker (Acute) History of IBS (Acute) Sigmoid diverticulitis (Acute) Medical History (Reviewed 04/04/23 @ 11: by Skyler Rahman MD) GERD (gastroesophageal reflux disease) Hypercholesterolemia Social History (Reviewed 04/04/23 @ 11: by Skyler Rahman MD) Smoking/Tobacco Use Status: Current every day Smoking risk assessment performed?: Yes Alcohol Intake: current Alcohol Intake frequency: a few times a week Drug use: Never Substance use type: does not use Housing: house Do you feel safe at home: Yes Do you feel safe in your relationship?: Yes Time Spent with Patient Time Spent with Patient: <45 minutes (35min) Time was spent: preparing to see the patient(eg.review tests), ordering medica tions,tests, procedures, referring, communicating with other health hospice home care coordinator, indepentently interpreting results, counseling the patient and care coordination
--- NOTE | 2023-04-04 11:49 | PDOC.CMDIS ---
Date of service: 04/04/23 Time of Service: 11:49 LACE Index Scoring Tool Questions: Length of Stay (in days): 2 Was the patient admitted via the E.D.?: Yes E.D. Visits: 1 Answers: Total Score: 6 Risk of Readmission: Low Risk Care Management Discharge Plan Reason for Hospitalization: Sigmoid Diverticulitis Discharge Plan: Juan is discharged home via private with . He will follow up with community providers and his discharge plan of care as instructed. No new services are ordered at time of discharge. He will call his PCP to schedule a follow up appointment (Dr. Mitchell at the [facility]). Patient/Family Education Needs: Review discharge instructions, limitations, medications and plan to follow up with community providers. Discuss ask me three.
== END 2023-04-04 14:35 | disposition home or self-care (01) | DRG 392 ==
LOC: ER 22:56 → MS 04-04 11:01
PROVIDERS: Family Medicine; Admitting Provider Family Medicine; Emergency Provider Emergency Medicine; Visit Provider Family Medicine
DX: K57.32 Diverticulitis of large intestine without perforation or abscess without bleeding (principal); Z87.19 Personal history of other diseases of the digestive system; F17.210 Nicotine dependence, cigarettes, uncomplicated; K21.9 Gastro-esophageal reflux disease without esophagitis; E78.00 Pure hypercholesterolemia, unspecified
CPT/HCPCS: 36415; 80048; 80053; 83690; 96365; 96367; 96375; 96376; 99285; J1650; 74177; 81003; 83735; 85025; 99239; J0696; J1170; J1885; J2270; J2405; J3490

== ENCOUNTER 2025-03-15 10:58 | Emergency (ER) | payer OTHER, SELFPAY ==
[2025-03-15 11:00] VITALS: BP 143/87; PULSE 113; RESP 16; TEMP 36.8; O2SAT 98
--- NOTE | 2025-03-15 11:00 | DI.RAD_ITS ---
Exam(s) XR CHEST 2V PA LATERAL EXAM: XR CHEST 2V PA LATERAL CLINICAL HISTORY: piece of metal to chst wall while hammering, r pec. TECHNIQUE: 2D digital imaging was performed. COMPARISON: No exams were available for comparison FINDINGS: 2 views: Heart size is normal. The mediastinum is not widened. Lungs are clear. No infiltrates nor pleural effusions. No radiopaque foreign body seen, as per request IMPRESSION: No acute pulmonary findings.No radiopaque foreign body. DATA REPOSITORY: RADIATION DOSE DELIVERED:
[2025-03-15 12:30] VITALS: BP 112/70; PULSE 51; RESP 16; O2SAT 94
--- NOTE | 2025-03-15 15:14 | W.ED.GENAD ---
Discharge Plan Disposition Patient Disposition: Home Condition: Stable Discharge Details Clinical Impression: Chest wall injury Primary Care Provider: None,None ED Provider: Annamaria Loyola Home Meds and New Rx's Prescriptions: New cephalexin 500 mg capsule 500 mg PO QID 5 Days Qty: 20 0RF Continued omeprazole 40 mg Capsule,Delayed Release(Dr/Ec) 40 mg PO DAILY Cholestyramine Light 4 gram Powder 4 g PO BID Discharge Instructions Instructions: Wound Care ED Additional Instructions: Take antibiotics for 3 to 5 days Motrin Tylenol as needed for discomfort keep wound clean and dry wash with soap and water daily and apply Neosporin at night There is no evidence of foreign body on your x-ray and metals usually show up quite well which is reassuring Please return with spreading redness, fever, worsening pain Discharge Data Discharge Date/Time-TO BE ENTERED AT DEPARTURE: 03/15/25 13:23 HPI General Date/Time Provider Initiated Documentation: 03/15/25 11:00. HPI Narrative: This 44-year-old male presents with report of injury to chest wall yesterday. He was hammering when a piece of the steel portion of a hammer came off, puncturing through his chart and into a his chest wall. He is concerned that there may be residual foreign body. He states his tetanus is up-to-date. Denies any shortness of breath Related Data Home Medications ?Medication ?Instructions ?Recorded ?Confirmed cholestyramine-aspartame 4 gram 4 g PO BID 12/07/18 03/15/25 oral powder (Cholestyramine Light) omeprazole 40 mg capsule,delayed 40 mg PO DAILY 04/02/23 03/15/25 release cephalexin 500 mg capsule 500 mg PO QID 5 days #20 caps 03/15/25 Previous Rx's ?Medication ?Instructions ?Recorded cephalexin 500 mg capsule 500 mg PO QID 5 days #20 caps 03/15/25 Allergies Allergy/AdvReac Type Severity Reaction Status Date / Time No Known Allergies Allergy Unverified 03/15/25 11:06 General Stated Complaint: ForeignBody JOSE ENRIQUE: 3 Exam Narrative Exam Narrative: Pectoral muscle on right with a puncture wound with surrounding erythema lungs clear to auscultation no respiratory distress Course Vital Signs Vital signs: Vital Signs Temperature 36.8 C 03/15/25 11:00 Pulse 113 H 03/15/25 11:00 Respiratory Rate 16 03/15/25 11:00 Blood Pressure 143/87 H 03/15/25 11:00 Pulse Oximetry 98 03/15/25 11:00 Temperature 36.8 C 03/15/25 11:00 Pulse 51 L 03/15/25 12:30 Respiratory Rate 16 03/15/25 12:30 Respiratory Effort Normal 03/15/25 11:19 Blood Pressure 112/70 03/15/25 12:30 Pulse Oximetry 94 03/15/25 12:30 Pain Level 5 03/15/25 11:00 Medical Decision Making Results: Chest x-ray per radiology interpretation my review does not show acute abnormality Tetanus reportedly up-to-date on this gentleman with a concern for potential foreign body right chest however chest x-ray is reassuring. Patient's placed on Keflex secondary to 1 inch of surrounding erythema and concern for possible infection. Patient was encouraged to wash with soap and water daily and take the Keflex as prescribed and apply Neosporin topically return precautions reviewed and patient expressed understand PFSH All Active Problems (Updated 03/15/25 @ 12:18 by LETY Daigle) Chest wall injury (Acute) Smoker (Acute) History of IBS (Acute) Sigmoid diverticulitis (Acute) Medical History GERD (gastroesophageal reflux disease) Hypercholesterolemia Social History (Reviewed 04/04/23 @ 11: by Skyler Rahman MD) Smoking/Tobacco Use Status: Current every day Smoking risk assessment performed?: Yes Alcohol Intake: current Alcohol Intake frequency: a few times a week Drug use: Never Substance use type: does not use Housing: house Do you feel safe at home: Yes Do you feel safe in your relationship?: Yes
== END 2025-03-15 13:23 | disposition home or self-care (01) ==
PROVIDERS: Emergency Provider Physician Assistant
DX: R07.9 Chest pain, unspecified (principal)
CPT/HCPCS: 99283 ×2; 71046